=== PATIENT | female | born 1990 | race Caucasian/White ===

== ENCOUNTER → 2020-05-23 | Outpatient (CLI) | payer BC | LOC: LAB SHORT 13:00 → PLD 13:00 | DX: R87.619 Unspecified abnormal cytological findings in specimens from cervix uteri (principal) | CPT/HCPCS: 88305 ==

== ENCOUNTER 2020-07-07 12:16 | Day surgery (SDC) | payer BC ==
[~2020-07-07] VITALS: Ht 157.5 cm; Wt 56.8 kg
[~2020-07-07 12:16] MED LIST: KEPPRA XR750 MG PO; [UNRECOGNIZED DRUG - REMARK]
--- NOTE | 2020-07-07 12:36 | NUR ---
07/07/20 1236 Claudia Valadez, RN CHARTING IN PREOP
== END 2020-07-07 14:45 | disposition home or self-care (01) ==
LOC: ORSCSDS 12:16
PROVIDERS: Obstetrics & Gynecology
PROC: 0UBC7ZX Excision of Cervix, Via Natural or Artificial Opening, Diagnostic (ICD-10-PCS; principal; 2020-07-07 13:30)
DX: D06.9 Carcinoma in situ of cervix, unspecified (principal); Z79.899 Other long term (current) drug therapy
CPT/HCPCS: 88305; 88307; J0171; J1100; J2250; J2370; J2405; J2704; J3010; J7120

== ENCOUNTER → 2022-01-16 | Outpatient (CLI) | payer BC ==
[~2022-01-16] MED LIST changes: +ACET500 PO; +DOCU100 PO; +IBUP800 PO; +OXYC5 PO; +[UNRECOGNIZED DRUG - REMARK]; -[UNRECOGNIZED DRUG - REMARK]
[2022-01-17 18:10] LABS: HPV 16 Negative (Negative); HPV 18 Negative (Negative); HPV OTHER HR TYPES Negative (Negative)
== END | disposition home or self-care (01) ==
LOC: LAB 09:14 → LAB SHORT 09:14
PROVIDERS: Family Medicine
DX: Z01.419 Encounter for gynecological examination (general) (routine) without abnormal findings (principal)
CPT/HCPCS: 87624; G0123

== ENCOUNTER → 2022-10-01 | Outpatient (CLI) | payer BC ==
[2022-10-02 14:07] LABS: HPV 16 Negative (Negative); HPV 18 Negative (Negative); HPV OTHER HR TYPES Negative (Negative)
== END ==
LOC: LAB 15:17 → LAB SHORT 15:17
PROVIDERS: Family Medicine
DX: Z01.419 Encounter for gynecological examination (general) (routine) without abnormal findings (principal)
CPT/HCPCS: 87624; G0145

== ENCOUNTER → 2023-10-15 | Outpatient (CLI) | payer BC ==
[2023-10-20 19:21] LABS: HPV HIGH RISK BY TMA Not Detected; HPV SOURCE Cervical/Vag
== END ==
LOC: LAB 10:46 → LAB SHORT 10:46
PROVIDERS: Family Medicine
DX: Z01.419 Encounter for gynecological examination (general) (routine) without abnormal findings (principal)
CPT/HCPCS: 87624; G0123

== ENCOUNTER → 2023-10-28 | Outpatient (CLI) | payer BC | END | disposition home or self-care (01) | LOC: LAB SHORT 09:02 → LAB 09:02 | DX: D23.70 Other benign neoplasm of skin of unspecified lower limb, including hip (principal) | CPT/HCPCS: 88305 ==